=== PATIENT | male | born 1985 | race Two or more races ===

== ENCOUNTER 2021-03-23 08:17 | Inpatient (IN) | payer OTHER ==
[~2021-03-23] VITALS: Ht 167.6 cm; Wt 181.4 kg
--- NOTE | 2021-03-23 08:43 | NUR ---
PACIENTE ALERTA Y ORIENTADO X3 REFIERE DOLOR EN EL FLANCO DERECHO DESDE EL VIERNES, REFIERE TENER CALCULOS EN LA VESICULA. FAMILIAR REFIERE QUE PACIENTE NO SE TRATO LOS CALCULOS. SE ELAINA S/V Y SE UBICA PACIENTE.
--- NOTE | 2021-03-23 10:07 | NUR ---
PACIENTE ES EVALUADO POR LA . NORITA QUIEN ORDENA TRATAMIENTO MEDICO. SE ORIENTA A PACIENTE Y FAMILIAR SOBRE TRATAMIENTO, VERBALIZA ENTENDER Y MISS Faviola MIRZA RN EJECUTA ORDENES MEDICAS. SE NOTIFICA A SECRETARIA US ABDOMINAL Y SE ORIENTA A PACIENTE A PERMANECER NPO.
== END 2021-04-08 09:17 | disposition home or self-care (01) | DRG 871 ==
LOC: ER 08:17 → SURH 15:02
PROVIDERS: ADMIT Surgery; ATTEND Surgery
PROC: 02HV33Z Insertion of Infusion Device into Superior Vena Cava, Percutaneous Approach (ICD-10-PCS; 2021-03-23)
PROC: 0W9G30Z Drainage of Peritoneal Cavity with Drainage Device, Percutaneous Approach (ICD-10-PCS; 2021-03-31)
PROC: 0W9G30Z Drainage of Peritoneal Cavity with Drainage Device, Percutaneous Approach (ICD-10-PCS; principal; 2021-04-02)
DX: A41.9 Sepsis, unspecified organism (principal); K35.33 Acute appendicitis with perforation, localized peritonitis, and gangrene, with abscess; Z68.44 Body mass index [BMI] 60.0-69.9, adult; N17.8 Other acute kidney failure; E66.01 Morbid (severe) obesity due to excess calories; Z91.19 Patient's noncompliance with other medical treatment and regimen; B96.20 Unspecified Escherichia coli [E. coli] as the cause of diseases classified elsewhere

== ENCOUNTER 2024-01-26 12:10 | Outpatient (CLI) | payer OTHER | END 2024-01-26 12:15 | disposition home or self-care (01) | LOC: SONOGRAMA 12:10 | PROVIDERS: ATTEND Pathology Anatomic Pathology & Clinical Pathology | DX: C73 Malignant neoplasm of thyroid gland (principal); E04.2 Nontoxic multinodular goiter ==

== ENCOUNTER 2024-04-16 11:50 | Outpatient (CLI) | payer OTHER ==
[~2024-04-16 11:50] MED LIST: ALLEGRA; AMLODIPINE 5MG; LOSARTAN POTAS100 MG; SINGULAIR
== END 2024-04-16 11:55 | disposition home or self-care (01) ==
LOC: SONOGRAMA 11:50
PROVIDERS: ATTEND Surgery
DX: E04.2 Nontoxic multinodular goiter (principal)

== ENCOUNTER 2024-04-23 07:30 | Inpatient (IN) | payer OTHER ==
[2024-04-16 10:31] LABS: URINE APPEARANCE Clear; URINE BILIRRUBIN Negative (NEGATIVE); URINE BLOOD Negative; URINE COLOR Yellow; URINE GLUCOSE Negative (NEGATIVE); URINE KETONE Negative (NEGATIVE); URINE LEUKOCYTE Negative; URINE NITRATE Negative; URINE PROTEIN Negative (NEGATIVE)
[2024-04-16 10:32] LABS: URINE BACTERIA 55.4 uL (0.0-1933); URINE EPITHELIAL CELLS 4.4 uL (0.0-38.8); URINE RBC 23.6 uL (0.0-20.8); URINE WBC 2.7 uL (0.0-23.2)
[2024-04-16 10:32] LABS: HEMATOCRIT 40.2 % (39.0-48.0); HEMOGLOBIN 13.2 g/dL (13-16.00); MEAN CELL VOLUME 80.2 fL (80.0-100.00); MEAN CORPUSCULAR HEMOGLOBIN 26.4 pg (27.00-32.0); MEAN CORPUSCULAR HGB CONC 32.9 g/dl (32.0-36.0); PLATELET COUNT 209 K/uL (150-450); RED BLOOD COUNT 5.01 M/uL (4.00-6.00); RED CELL DISTRIBUTION WIDTH 14.8 % (11.5-14.5)
[2024-04-16 10:35] LABS: URINE CAST 0.15 uL (0.0-1.40)
[2024-04-16 11:06] LABS: INR 1.05; PARTIAL THROMBOPLASTIN TIME 30.2 SECONDS (22.0-34.0); PROTHROMBIN TIME 11.4 SECONDS (9.0-11.5)
[2024-04-16 11:24] LABS: ALBUMIN 3.6 gm/dL (3.4-5.0); BILIRUBIN TOTAL 0.51 mg/dL (0.3-1.2); CALCIUM 8.5 mg/dL (8.5-10.1); CREATININE SERUM 0.79 mg/dL (0.70-1.30); GFR 108.09; GLOBULINA 3.9 G/DL (2.4-3.5); POTASSIUM 4.4 mEq/L (3.5-5.1); TOTAL PROTEIN 7.5 gm/dL (6.4-8.2)
[~2024-04-23] VITALS: Ht 167.6 cm; Wt 369.7 kg
[2024-04-23] MEDS ORDERED: TRAMADOL HCL 50 MG TABLET PO SCH (13:49)
[2024-04-23] MEDS ORDERED: CYCLOBENZAPRINE HCL 5 MG TABLET PO SCH (13:49)
[2024-04-23] MEDS ORDERED: ACETAMINOPHEN 500 MG GEL..CAP PO SCH (13:49)
[2024-04-23] MEDS ORDERED: AMLODIPINE BESYLATE 5 MG TABLET PO SCH (13:50)
[2024-04-23] MEDS ORDERED: ENALAPRILAT DIHYDRATE 1.25 MG/ML VIAL IV PRN (14:00)
[2024-04-23] MEDS ORDERED: ONDANSETRON HCL 2 MG/ML VIAL IV PRN (14:00)
[2024-04-23] MEDS ORDERED: CEFAZOLIN SODIUM 1,000 MG VIAL IV ONE (14:45)
[2024-04-23] MEDS ORDERED: DEXAMETHASONE SODIUM PHOSPHATE 4 MG/ML VIAL IV ONE (14:45)
[2024-04-23] MEDS ORDERED: MORPHINE SULFATE 4 MG/ML VIAL IV ONE (15:35)
[2024-04-23] MEDS ORDERED: LOSARTAN POTASSIUM 100 MG TABLET PO SCH (17:00)
[2024-04-23] MEDS ORDERED: PANTOPRAZOLE SODIUM 40 MG/VIAL VIAL IV PUSH SCH (21:00)
[2024-04-24 00:20] VITALS: BP 128/68; O2SAT 100
[2024-04-24 08:00] VITALS: BP 120/72; O2SAT 93
== END 2024-04-24 10:31 | disposition home or self-care (01) | DRG 627 ==
LOC: CIR.AMB 07:30 → SURH 17:02 → O/R 17:02 → SURH 17:26 → SURG 18:14
PROVIDERS: ADMIT Surgery; ATTEND Surgery
PROC: 0GTG0ZZ Resection of Left Thyroid Gland Lobe, Open Approach (ICD-10-PCS; principal; 2024-04-23 09:15)
DX: C73 Malignant neoplasm of thyroid gland (principal); Z20.822 Contact with and (suspected) exposure to COVID-19

== ENCOUNTER 2024-07-06 07:45 | Inpatient (IN) | payer OTHER ==
[~2024-07-06] VITALS: Ht 167.6 cm; Wt 167.8 kg
[~2024-07-06 07:45] MED LIST changes: -AMLODIPINE 5MG; +AMLODIPINE PO; -SINGULAIR; +SINGULEAR PO
[2024-07-23 10:38] VITALS: BP 107/68
[2024-07-23 11:02] LABS: HEMATOCRIT 41.8 % (39.0-48.0); HEMOGLOBIN 13.6 g/dL (13-16.00); MEAN CELL VOLUME 80.9 fL (80.0-100.00); MEAN CORPUSCULAR HEMOGLOBIN 26.3 pg (27.00-32.0); MEAN CORPUSCULAR HGB CONC 32.5 g/dl (32.0-36.0); PLATELET COUNT 210 K/uL (150-450); RED BLOOD COUNT 5.17 M/uL (4.00-6.00); RED CELL DISTRIBUTION WIDTH 15.5 % (11.5-14.5)
[2024-07-23 11:03] LABS: PH,URINE 5.5 (5.0-8.0); URINE APPEARANCE Clear; URINE BILIRRUBIN Negative (NEGATIVE); URINE BLOOD Trace; URINE COLOR Yellow; URINE GLUCOSE Negative (NEGATIVE); URINE KETONE Negative (NEGATIVE); URINE LEUKOCYTE Negative; URINE NITRATE Negative; URINE PROTEIN Negative (NEGATIVE); URINE UROBILINOGEN 0.2 E.U./dl
[2024-07-23 11:04] LABS: URINE EPITHELIAL CELLS 3.6 uL (0.0-38.8); URINE RBC 23.8 uL (0.0-20.8); URINE WBC 2.3 uL (0.0-23.2)
[2024-07-23 11:38] LABS: INR 1.02; PARTIAL THROMBOPLASTIN TIME 29.8 SECONDS (22.0-34.0); PROTHROMBIN TIME 11.1 SECONDS (9.0-11.5)
[2024-07-23 12:08] LABS: ALBUMIN 3.5 gm/dL (3.4-5.0); BILIRUBIN TOTAL 0.42 mg/dL (0.3-1.2); CREATININE SERUM 0.88 mg/dL (0.70-1.30); GFR 95.43; GLOBULINA 3.9 G/DL (2.4-3.5); POTASSIUM 4.25 mEq/L (3.5-5.1); TOTAL PROTEIN 7.4 gm/dL (6.4-8.2)
[2024-07-26] MEDS ORDERED: DEXAMETHASONE SODIUM PHOSPHATE 4 MG/ML VIAL ONE (07:17)
[2024-07-26] MEDS ORDERED: ONDANSETRON HCL 2 MG/ML VIAL IV PRN (10:15)
[2024-07-26] MEDS ORDERED: ENALAPRILAT DIHYDRATE 1.25 MG/ML VIAL IV PRN (10:15)
[2024-07-26] MEDS ORDERED: MORPHINE SULFATE 4 MG/ML VIAL IV ONE (12:10)
[2024-07-26] MEDS ORDERED: TRAMADOL HCL 50 MG TABLET PO SCH (17:00)
[2024-07-26] MEDS ORDERED: CYCLOBENZAPRINE HCL 5 MG TABLET PO SCH (17:00)
[2024-07-26] MEDS ORDERED: ACETAMINOPHEN 500 MG GEL..CAP PO SCH (17:00)
[2024-07-26 19:52] VITALS: BP 97/59; O2SAT 96
[2024-07-26] MEDS ORDERED: PANTOPRAZOLE SODIUM 40 MG/VIAL VIAL IV PUSH SCH (21:00)
[2024-07-27 00:48] VITALS: BP 129/67; O2SAT 95
[2024-07-27] MEDS ORDERED: LEVOTHYROXINE SODIUM 175 MCG TABLET PO SCH (06:00)
[2024-07-27 08:00] VITALS: BP 95/55; O2SAT 95
[2024-07-27] MEDS ORDERED: AMLODIPINE BESYLATE 5 MG TABLET PO SCH (09:00)
[2024-07-27] MEDS ORDERED: LOSARTAN POTASSIUM 100 MG TABLET PO SCH (09:00)
== END 2024-07-27 12:26 | disposition home or self-care (01) | DRG 627 ==
LOC: O/R 07-26 06:15 → SURH 07-26 07:00
PROVIDERS: ADMIT Surgery; ATTEND Surgery
PROC: 0GTH0ZZ Resection of Right Thyroid Gland Lobe, Open Approach (ICD-10-PCS; principal; 2024-07-26 07:00)
DX: E04.1 Nontoxic single thyroid nodule (principal)